=== PATIENT | female | born 1950 | race Caucasian/White ===

== ENCOUNTER 2017-08-26 13:47 | Emergency (ER) | payer SELFPAY ==
[~2017-08-26] VITALS: Ht 162.6 cm; Wt 80.0 kg
[2017-08-26 14:04] VITALS: BP 141/80
== END 2017-08-26 14:56 | disposition home or self-care (01) ==
LOC: ER 13:49
DX: S93.602A Unspecified sprain of left foot, initial encounter (principal); W18.39XA Other fall on same level, initial encounter; Y93.89 Activity, other specified; Y92.89 Other specified places as the place of occurrence of the external cause; Y99.8 Other external cause status
CPT/HCPCS: 73630; 99284